=== PATIENT | male | born 1940 | race Caucasian/White ===

== ENCOUNTER → 2023-11-25 07:34 | Outpatient (REF) | payer MEDICARE, SELFPAY | LOC: HWRAD 07:34 | PROVIDERS: ATTENDING PHYSICIAN Surgery Vascular Surgery; FAMILY PHYSICIAN Internal Medicine | DX: I71.40 Abdominal aortic aneurysm, without rupture, unspecified (principal) | CPT/HCPCS: 74176 ==

== ENCOUNTER → 2023-12-03 08:36 | Outpatient (REF) | payer MEDICARE, SELFPAY ==
[2023-12-03 09:29] LABS: % Basophils 0.9 % (0-2); % Eosinophils 3.2 % (0-6); % Immature Granulocytes 0.2 % (0-0.5); % Lymphocytes 26.1 % (20.5-51.1); % Monocytes 8.4 % (1.7-9.3); % Neutrophils 61.2 % (42.2-75.2); Absolute Basophils 0.1 10^3/uL (0-0.2); Absolute Eosinophils 0.2 10^3/uL (0-0.7); Absolute Lymphocytes 1.5 10^3/uL (1.2-3.4); Absolute Monocytes 0.5 10^3/uL (0.1-0.6); Absolute Neutrophils 3.4 10^3/uL (1.4-6.5); Hematocrit 37.6 % (39.0-52.0); Hemoglobin 12.4 g/dL (13.0-18.0); Mean Corpuscular Hgb 31.1 pg (27.0-31.0); Mean Corpuscular Volume 94.2 fL (80.0-94.0); Nucleated Red Blood Cells % 0 % (-); Platelet Count 141 10^3/uL (130-400); Red Blood Cell Count 3.99 10^6/uL (4.70-6.10); White Blood Cell Count 5.6 10^3/uL (4.8-10.8)
[2023-12-03 12:52] LABS: TSH 0.47 uIU/ml (0.47-4.68)
[2023-12-03 13:05] LABS: ALT (SGPT) 11 U/L (0-50); AST (SGOT) 17 U/L (17-59); Albumin 3.9 g/dl (3.5-5.0); Alkaline Phosphatase 111 U/L (38-126); Calcium 8.8 mg/dl (8.4-10.2); Carbon Dioxide 27 mmol/L (22-30); Chloride 106 mmol/L (98-107); Glucose 97 mg/dl (70-99); Potassium 4.3 mmol/L (3.5-5.1); Sodium 137 mmol/L (135-145); Total Protein 7.1 g/dl (6.3-8.2)
[2023-12-03 13:11] LABS: Vitamin B12 295 pg/ml (239-931)
[2023-12-03 13:24] LABS: Blood Urea Nitrogen 22 mg/dl (9-20); Total Bilirubin 0.5 mg/dl (0.2-1.3); eGFR 54.85
== END ==
LOC: REG 08:36
PROVIDERS: ATTENDING PHYSICIAN Internal Medicine
DX: I10 Essential (primary) hypertension (principal); E78.2 Mixed hyperlipidemia; I71.40 Abdominal aortic aneurysm, without rupture, unspecified; K21.9 Gastro-esophageal reflux disease without esophagitis; G60.9 Hereditary and idiopathic neuropathy, unspecified; Z85.46 Personal history of malignant neoplasm of prostate; Z00.00 Encounter for general adult medical examination without abnormal findings
CPT/HCPCS: 36415; 80053; 82607; 84443; 85025

== ENCOUNTER → 2023-12-04 08:53 | Outpatient (REF) | payer MEDICARE, SELFPAY ==
[2023-12-04 11:47] LABS: Folate 4.3 ng/ml (2.76-20)
== END ==
LOC: REG 08:53
PROVIDERS: ATTENDING PHYSICIAN Internal Medicine
DX: I10 Essential (primary) hypertension (principal); E78.2 Mixed hyperlipidemia; I71.40 Abdominal aortic aneurysm, without rupture, unspecified; K21.9 Gastro-esophageal reflux disease without esophagitis; G60.9 Hereditary and idiopathic neuropathy, unspecified; Z85.46 Personal history of malignant neoplasm of prostate; Z00.00 Encounter for general adult medical examination without abnormal findings
CPT/HCPCS: 36415; 82746

== ENCOUNTER → 2023-12-16 11:18 | Outpatient (REF) | payer MEDICARE, SELFPAY ==
[2023-12-16 13:35] LABS: PSA, Total - Diagnostic 1.61 ng/ml (0.0-4.0)
== END ==
LOC: REG 11:18
PROVIDERS: ATTENDING PHYSICIAN Specialist; FAMILY PHYSICIAN Internal Medicine
DX: R97.21 Rising PSA following treatment for malignant neoplasm of prostate (principal)
CPT/HCPCS: 36415; 84153

== ENCOUNTER → 2024-01-02 08:39 | Outpatient (REF) | payer MEDICARE, SELFPAY | LOC: HWRAD 08:39 | PROVIDERS: ATTENDING PHYSICIAN Internal Medicine Critical Care Medicine; FAMILY PHYSICIAN Internal Medicine | DX: R91.8 Other nonspecific abnormal finding of lung field (principal); R91.1 Solitary pulmonary nodule; J84.9 Interstitial pulmonary disease, unspecified | CPT/HCPCS: 71250 ==

== ENCOUNTER → 2024-03-19 08:37 | Outpatient (REF) | payer MEDICARE, SELFPAY ==
[2024-03-19 11:14] LABS: Creatine Phosphokinase 57 U/L (55-170)
[2024-03-19 15:22] LABS: Rheumatoid Agglutinin Less Than 10 IU (<10 IU)
[2024-03-20 22:13] LABS: ANA, IgG Reflex to HEp-2 None Detected (None Detected)
[2024-03-21 00:04] LABS: ds-DNA Ab, IgG Reflex To Titer 10 IU (0-24)
[2024-03-21 01:46] LABS: CCP Antibody IgG/IgA 30 Units (0-19)
[2024-03-21 04:16] LABS: Aldolase 4.1 U/L (1.2-7.6); Angiotensin-1-converting Enzym 25 U/L (16-85)
[2024-03-21 13:09] LABS: Myeloperoxidase Antibody 0 AU/mL (0-19); Serine Protease-3, IgG 0 AU/mL (0-19)
[2024-03-21 13:53] LABS: Jo-1 Antibodies 4 AU/mL (0-40); SSA 52 (Ro)(ENA) Ab, IgG 3 AU/mL (0-40); SSA 60 (Ro)(ENA) Ab, IgG 0 AU/mL (0-40); SSB (La)(ENA) Ab, IgG 1 AU/mL (0-40); Scleroderma Antibody (Scl-70) 6 AU/mL (0-40)
== END ==
LOC: REG 08:37
PROVIDERS: ATTENDING PHYSICIAN Internal Medicine Critical Care Medicine; FAMILY PHYSICIAN Internal Medicine
DX: J84.9 Interstitial pulmonary disease, unspecified (principal)
CPT/HCPCS: 36415; 82085; 82164; 82550; 83516; 86038; 86200; 86225; 86235; 86331; 86430; 86606

== ENCOUNTER → 2024-03-20 11:02 | Outpatient (REF) | payer MEDICARE, SELFPAY | LOC: HWRAD 11:02 | PROVIDERS: ATTENDING PHYSICIAN Internal Medicine Critical Care Medicine; FAMILY PHYSICIAN Internal Medicine | DX: J84.9 Interstitial pulmonary disease, unspecified (principal) | CPT/HCPCS: 71250 ==

== ENCOUNTER 2024-08-09 11:35 | Emergency (ER) | payer MEDICARE, SELFPAY ==
[2024-08-09 11:48] VITALS: BP 128/82
--- NOTE | 2024-08-09 14:44 | ED.GENMED ---
History of Present Illness
General
Chief Complaint: Dizziness
Source: patient
Exam Limitations: none
Time Seen by Provider: 08/09/24 14:43
Nursing documentation reviewed up to this point in time: agreed with
History of Present Illness
History of Present Illness:
84-year-old male with history of HTN, HLD, AAA with repair 03/2023, prostate cancer with prostatectomy 2005 presents for dizziness. Was dizzy yesterday getting out of bed in a.m. , subsided after about 5 minutes. No dizziness rest of day. This a.m.
upon arising felt dizzy, had to hold on to things to walk and this time it lasted about 2 hours. Has had no dizziness since. Denies recent head injury, denies headache, change in vision, n/v/d/c.
Past History
Past History
ED Past Medical History: HTN and Hypercholesterolemia
ED Past Surgical History: Cardiac (AAA repair 03/2023) and Urological (Prostatectomy 2005)
Social History
Tobacco: Former smoker
Alcohol: None
Personal:
Employment: Retired
Review of Systems
Review of Systems
Allergies reviewed?: Yes
All Other Systems: ROS reviewed and negative except as documented in HPI and ROS
Constitutional: Denies fever or fatigue
Respiratory: Denies trouble breathing
Cardiac: Denies chest pain
ABD/GI: Denies abdominal pain, nausea, vomiting or diarrhea
: Denies dysuria or difficulty voiding
Musculoskeletal: Reports no symptoms
Skin: Reports no symptoms
Neurological: Reports dizzy; Denies headache, weakness or numbness
Phy Exam
Physical Exam
Physical Exam:
GENERAL: No acute distress. A&Ox3.
CONSTITUTIONAL: Afebrile.
EYES: clear, conjunctivae normal
ENMT: moist mucus membranes, Pharynx nl
RESPIRATORY: Regular respirations, nonlabored, lungs clear.
CARDIOVASCULAR: Regular rate and rhythm, no murmurs, no rubs.
GI: Soft, nontender, normal BS
MUSCULOSKELETAL: Moves with ease. Well perfused.
SKIN: Warm, dry, pink
PSYCH: Normal mood and affect. Well kept, interactive and appropriate
NEUROLOGIC: Awake, alert and oriented. Speech clear. CN 2-12 intact. No focal neurological deficits. Cerebellum intact (finger to nose, ambulates with steady gait and no c/o dizziness)
Course
Orders/Labs/Results
Orders:
Orders
08/09/24 11:52
Electrocardiogram (*1) Urgent
Reason for Study: Vertigo / Dizzy
CT Head W/o Iv Contrast Urgent
Comment:
Reason For Exam: dizziness
EKG- Treatment ONCE
08/09/24 14:56
Physical Therapy Consult [Pt Eval And Treat] Urgent
Treatment: Vestibular evaluation
Activity Level: Ambulate
08/09/24 16:37
Complete Blood Count/With Diff Urgent
Comprehensive Metabolic Panel Urgent
Abnormal Lab Results
08/09/24
16:37
RBC 4.11 L 10^6/uL
(4.70-6.10)
Hgb 12.5 L g/dL
(13.0-18.0)
Hct 37.3 L %
(39.0-52.0)
Sodium 134 L mmol/L
(135-145)
BUN 24 H mg/dl
(9-20)
Glucose 107 H mg/dl
(70-99)
Alkaline Phosphatase 127 H U/L
(38-126)
08/09/24 16:37
08/09/24 16:37
Vital Signs
Initial and Last Documented VS:
Initial Vital Signs
Temp Pulse Resp BP Pulse Ox
98.3 F 64 18 128/82 96
08/09/24 11:48 08/09/24 11:48 08/09/24 11:48 08/09/24 11:48 08/09/24 11:48
Last Documented Vital Signs
Temp Pulse Resp BP Pulse Ox
98.3 F 64 18 128/91 98
08/09/24 11:48 08/09/24 11:48 08/09/24 11:48 08/09/24 16:30 08/09/24 16:31
MDM/Problems Addressed
Differential Diagnosis Includes:
BPPV, labyrinthitis, TIA
MDM/Problems Addressed:
84-year-old male with history of HTN, HLD, AAA with repair 03/2023, prostate cancer with prostatectomy 2005 presents for dizziness. Was dizzy yesterday getting out of bed in a.m. , subsided after about 5 minutes. No dizziness rest of day. This a.m.
upon arising felt dizzy, had to hold on to things to walk and this time it lasted about 2 hours. Has had no dizziness since. Denies recent head injury, denies headache, change in vision, n/v/d/c.
EKG: NSR
Head CT neg
P/T in to evaluate: States definitely BPPV, nystagmus dizziness provoked bilaterally. pt feeling better after Hallpike and maneuvers
Rx for Meclizine sent to his pharmacy
CBC normal
CMP unremarkable
Pt stable for discharge
Rx for Meclizine sent to his pharmacy
Rx for Out pt Vestibular therapy given
Vestibular rehab pamphlet provided
*EKG
Interpreted by ED Provider?: Yes
EKG Intrepretation Date: 08/09/24
Interpretation: normal
Heart Rate: 69
Rate: normal
Rhythm: sinus
[place]: normal axis
Interval: normal interval
QRS Pattern: normal QRS
Ischemia: no ischemia
*Critical Care Note
Total Time (30-74mins, 75-104mins- exclusive of procedures): Not Applicable
ED Attending Note
-
Portions of this chart may have been created with voice recognition software.� Occasional wrong word or��sound alike� substitutions may have occurred due to the inherent limitations of voice recognition software.
Discharge Plan
Departure
Patient Disposition: Home (Routine Discharge)
Date of Disposition: 08/09/24
Time of Disposition: 17:07
Patient with high blood pressure during this ER visit?: No
Condition: Good
Discharge Problem:
Benign paroxysmal positional vertigo
Instructions: Vertigo (a type of dizziness), Exercises (maneuvers) for benign paroxysmal positional vertigo
Prescriptions:
New
meclizine 25 mg tablet
25 mg PO TID PRN (Reason: dizziness) Qty: 15 0RF
No Action
atorvastatin 20 mg Tablet
20 mg PO DAILY
metoprolol succinate [Toprol XL] 50 mg Tablet Extended Release 24 Hr
50 mg PO DAILY
acetaminophen 500 mg Capsule
500 mg PO Q6H PRN (Reason: pain)
omeprazole 20 mg Tablet,Delayed Release (Dr/Ec)
20 mg PO DAILY
Rx Instructions:
30 minutes prior to morning meal
aspirin 81 mg Tablet,Delayed Release (Dr/Ec)
81 mg PO DAILY Qty: 90 0RF
Referrals:
Louie Ayoub MD [Family Provider] - As needed
Activity Restrictions/Additional Instructions:
As we discussed, your exam is positive for benign positional vertigo.
Make an appointment with the outpatient vestibular clinic
I sent a prescription to your pharmacy for meclizine to take 25 mg up to 3 times a day as needed for dizziness
Return here immediately for dizziness that worsens despite the meclizine or your exercises that the physical therapist gave you
Interventions
Interventions:
*Risk Screen - Suicide Last Done: 08/09/24 11:48
*General Assessment Last Done: 08/09/24 11:48
*Neglect/Abuse Screening Last Done: 08/09/24 11:48
*ED COVID-19 Vaccine History Last Done: 08/09/24 11:48
ED- Neurological Assessment Last Done: 08/09/24 16:31
ED Swallowing Screen Last Done: 08/09/24 16:31
Discharge Date and Time
Print Language: RUSSIAN
[2024-08-09 16:30] VITALS: BP 128/91
[2024-08-09 16:31] VITALS: BMI 23.3
[2024-08-09 16:45] VITALS: BP 173/84
[2024-08-09 16:47] LABS: % Basophils 0.5 % (0-2); % Eosinophils 1.7 % (0-6); % Immature Granulocytes 0.2 % (0-0.5); % Monocytes 8.9 % (1.7-9.3); % Neutrophils 63.7 % (42.2-75.2); Absolute Eosinophils 0.1 10^3/uL (0-0.7); Absolute Lymphocytes 1.4 10^3/uL (1.2-3.4); Absolute Monocytes 0.5 10^3/uL (0.1-0.6); Absolute Neutrophils 3.7 10^3/uL (1.4-6.5); Hematocrit 37.3 % (39.0-52.0); Hemoglobin 12.5 g/dL (13.0-18.0); Mean Corp Hgb Conc. 33.5 g/dL (33.0-37.0); Mean Corpuscular Hgb 30.4 pg (27.0-31.0); Mean Corpuscular Volume 90.8 fL (80.0-94.0); Mean Platelet Volume 10.2 fL (7.4-10.4); Nucleated Red Blood Cells % 0 % (-); Platelet Count 131 10^3/uL (130-400); Red Blood Cell Count 4.11 10^6/uL (4.70-6.10); Red Cell Dist. Width 13.2 % (11.5-14.5); White Blood Cell Count 5.7 10^3/uL (4.8-10.8)
[2024-08-09 17:00] VITALS: BP 156/81
[2024-08-09 17:02] LABS: ALT (SGPT) 13 U/L (0-50); AST (SGOT) 18 U/L (17-59); Albumin 3.9 g/dl (3.5-5.0); Alkaline Phosphatase 127 U/L (38-126); Blood Urea Nitrogen 24 mg/dl (9-20); Calcium 8.8 mg/dl (8.4-10.2); Carbon Dioxide 24 mmol/L (22-30); Chloride 102 mmol/L (98-107); Estimated Creatinine Clearance 51 ml/min; Glucose 107 mg/dl (70-99); Potassium 4.7 mmol/L (3.5-5.1); Sodium 134 mmol/L (135-145); Total Bilirubin 0.6 mg/dl (0.2-1.3); Total Protein 7.2 g/dl (6.3-8.2); eGFR > 60.00
== END 2024-08-09 17:24 | disposition home or self-care (01) ==
LOC: EMR 11:35
PROVIDERS: Emergency Medicine; EMERGENCY PHYSICIAN Emergency Medicine; FAMILY PHYSICIAN Internal Medicine
DX: H81.10 Benign paroxysmal vertigo, unspecified ear (principal); I10 Essential (primary) hypertension; E78.00 Pure hypercholesterolemia, unspecified; Z85.46 Personal history of malignant neoplasm of prostate; Z86.79 Personal history of other diseases of the circulatory system; Z87.891 Personal history of nicotine dependence; Z90.79 Acquired absence of other genital organ(s)
CPT/HCPCS: 99284; 70450; 80053; 85025; 93005

== ENCOUNTER 2024-08-20 08:17 | Outpatient (RCR) | payer MEDICARE, SELFPAY | END 2024-08-20 23:59 | disposition home or self-care (01) | LOC: RPT 08:17 | PROVIDERS: ATTENDING PHYSICIAN Registered Nurse; FAMILY PHYSICIAN Internal Medicine | DX: R42 Dizziness and giddiness (principal); Z73.6 Limitation of activities due to disability | CPT/HCPCS: 97162; 97530 ==

== ENCOUNTER → 2024-09-22 08:06 | Outpatient (REF) | payer MEDICARE, SELFPAY | LOC: HWRAD 08:06 | PROVIDERS: ATTENDING PHYSICIAN Internal Medicine Critical Care Medicine; FAMILY PHYSICIAN Internal Medicine; REFERRING PHYSICIAN Student in an Organized Health Care Education/Training Program | DX: R91.8 Other nonspecific abnormal finding of lung field (principal); J84.9 Interstitial pulmonary disease, unspecified | CPT/HCPCS: 71250 ==

== ENCOUNTER → 2025-01-01 14:00 | Outpatient (REF) | payer MEDICARE, SELFPAY | LOC: HWRAD 14:00 | PROVIDERS: ATTENDING PHYSICIAN Surgery Vascular Surgery; FAMILY PHYSICIAN Internal Medicine | DX: I71.40 Abdominal aortic aneurysm, without rupture, unspecified (principal) | CPT/HCPCS: 74176 ==

== ENCOUNTER 2025-01-21 09:24 | Emergency (ER) | payer MEDICARE, SELFPAY ==
[2025-01-21 09:27] VITALS: BP 119/88
[2025-01-21 10:10] VITALS: BP 128/84
--- NOTE | 2025-01-21 10:22 | ED.GENMED ---
History of Present Illness
General
Chief Complaint: Dizziness
Source: patient
Time Seen by Provider: 01/21/25 10:03
History of Present Illness
History of Present Illness:
84-year-old male presents to the emergency room complaining of dizziness. Patient states he was getting out of bed to get dressed when he had the sense of spinning and movement. Symptoms have settled down. Currently he feels okay. He had a
similar episode 6 months ago. He denies any headache, chest pain, shortness of breath.
Past History
Past History
ED Past Medical History: HTN and Hypercholesterolemia
ED Past Surgical History: Cardiac (AAA repair 03/2023) and Urological (Prostatectomy 2005)
Social History
Tobacco: Former smoker
Alcohol: None
Personal:
Employment: Retired
Phy Exam
Physical Exam
Physical Exam:
General: Awake, Alert, Oriented X3. No acute distress. Appears stated age
Vitals: unremarkable
Head: Atraumatic
Eyes: Pupils equal, EOMI
Throat: Airway intact, no exudates
Neck: Trachea midline
Lungs: Clear and equal b/l
Heart: Regular rate, no murmurs
Abd: Soft, Nontender, No pulsatile mass
Neuro: Cranial nerves intact, muscle strength equal bilaterally, cerebellar exam normal
Skin: Warm, dry, no rash
Extremities: pulses equal b/l, no edema
Course
Orders/Labs/Results
Orders:
Orders
01/21/25 10:17
Electrocardiogram (*1) Urgent
Reason for Study: Vertigo / Dizzy
EKG- Treatment ONCE
Meclizine [Antivert] 25 mg PO NOW STA
01/21/25 10:40
Basic Metabolic Panel Urgent
01/21/25 11:31
Complete Blood Count/No Diff Routine
Abnormal Lab Results
01/21/25 01/21/25
10:40 11:31
RBC 3.73 L 10^6/uL
(4.70-6.10)
Hgb 11.5 L g/dL
(13.0-18.0)
Hct 34.0 L %
(39.0-52.0)
Plt Count 108 L 10^3/uL
(130-400)
Chloride 110 H mmol/L
(98-107)
Carbon Dioxide 21 L mmol/L
(22-30)
BUN 21 H mg/dl
(9-20)
Glucose 173 H mg/dl
(70-99)
01/21/25 11:31
01/21/25 10:40
Vital Signs
Initial and Last Documented VS:
Initial Vital Signs
Temp Pulse Resp BP Pulse Ox
98 F 71 16 119/88 97
01/21/25 09:27 01/21/25 09:27 01/21/25 09:27 01/21/25 09:27 01/21/25 09:27
Last Documented Vital Signs
Temp Pulse Resp BP Pulse Ox
98 F 58 13 150/88 97
01/21/25 09:27 01/21/25 13:00 01/21/25 12:30 01/21/25 13:00 01/21/25 09:27
MDM/Problems Addressed
Differential Diagnosis Includes:
bppv, dehydration, anemia
MDM/Problems Addressed:
Patient presents after having episode of dizziness at home. The symptoms are gone at the time of my evaluation. He had a history of a similar episode 6 months ago. Overall the presentation seems most consistent with benign positional vertigo.
Patient totally asymptomatic at the time of discharge. Recommend outpatient follow with ENT
*Pulse Oximetry
Patient hypoxic: no
*Critical Care Note
Total Time (30-74mins, 75-104mins- exclusive of procedures): Not Applicable
ED Attending Note
-
Portions of this chart may have been created with voice recognition software.� Occasional wrong word or��sound alike� substitutions may have occurred due to the inherent limitations of voice recognition software.
Discharge Plan
Departure
Patient Disposition: Home (Routine Discharge)
Date of Disposition: 01/21/25
Time of Disposition: 12:49
Patient with high blood pressure during this ER visit?: No
Condition: Good
Discharge Problem:
BPPV (benign paroxysmal positional vertigo)
Instructions: Vertigo (a type of dizziness)
Prescriptions:
No Action
atorvastatin 20 mg Tablet
20 mg PO DAILY
metoprolol succinate [Toprol XL] 50 mg Tablet Extended Release 24 Hr
50 mg PO DAILY
acetaminophen 500 mg Capsule
500 mg PO Q6H PRN (Reason: pain)
omeprazole 20 mg Tablet,Delayed Release (Dr/Ec)
20 mg PO DAILY
Rx Instructions:
30 minutes prior to morning meal
aspirin 81 mg Tablet,Delayed Release (Dr/Ec)
81 mg PO DAILY Qty: 90 0RF
meclizine 25 mg tablet
25 mg PO TID PRN (Reason: dizziness) Qty: 15 0RF
Referrals:
Louie Ayoub MD [Family Provider, Internal Medicine]
Gayathri Garcia MD [Active, Otology]
Activity Restrictions/Additional Instructions:
You should get a box of meclizine 25mg which you can get from the pharmacy [id number].
Interventions
Interventions:
*Risk Screen - Suicide Last Done: 01/21/25 09:29
*General Assessment Last Done: 01/21/25 10:20
*Neglect/Abuse Screening Last Done: 01/21/25 09:29
*ED- Fall Risk Assessment Last Done: 01/21/25 10:20
*ED COVID-19 Vaccine History Last Done: 01/21/25 10:20
*Nursing Disposition Last Done: 01/21/25 13:35
ED- Neurological Assessment Last Done: 01/21/25 10:20
ED Swallowing Screen Last Done: 01/21/25 10:20
Discharge Date and Time
Discharge Date/Time: 01/21/25 13:35
Print Language: CONGOLESE
[2025-01-21] MEDS: ANTIVERT 25 MG PO (10:34)
[2025-01-21 11:00] VITALS: BP 116/85
[2025-01-21 11:10] LABS: Blood Urea Nitrogen 21 mg/dl (9-20); Calcium 8.7 mg/dl (8.4-10.2); Carbon Dioxide 21 mmol/L (22-30); Chloride 110 mmol/L (98-107); Glucose 173 mg/dl (70-99); Potassium 4.4 mmol/L (3.5-5.1); Sodium 138 mmol/L (135-145); eGFR > 60.00
[2025-01-21 11:35] LABS: Hemoglobin 11.5 g/dL (13.0-18.0); Mean Corp Hgb Conc. 33.8 g/dL (33.0-37.0); Mean Corpuscular Hgb 30.8 pg (27.0-31.0); Mean Corpuscular Volume 91.2 fL (80.0-94.0); Mean Platelet Volume 9.8 fL (7.4-10.4); Platelet Count 108 10^3/uL (130-400); Red Blood Cell Count 3.73 10^6/uL (4.70-6.10); Red Cell Dist. Width 13.7 % (11.5-14.5); White Blood Cell Count 5.7 10^3/uL (4.8-10.8)
[2025-01-21 12:00] VITALS: BP 130/76
[2025-01-21 13:00] VITALS: BP 150/88
== END 2025-01-21 13:35 | disposition home or self-care (01) ==
LOC: EMR 09:24
PROVIDERS: EMERGENCY PHYSICIAN Emergency Medicine; FAMILY PHYSICIAN Internal Medicine
DX: H81.10 Benign paroxysmal vertigo, unspecified ear (principal); I10 Essential (primary) hypertension; E78.00 Pure hypercholesterolemia, unspecified; Z87.891 Personal history of nicotine dependence; Z90.79 Acquired absence of other genital organ(s)
CPT/HCPCS: 99284; 80048; 85027; 93005

== ENCOUNTER → 2025-03-03 07:36 | Outpatient (REF) | payer MEDICARE, SELFPAY ==
[2025-03-03 08:33] LABS: Hematocrit 36.9 % (39.0-52.0); Hemoglobin 12.3 g/dL (13.0-18.0); Mean Corp Hgb Conc. 33.3 g/dL (33.0-37.0); Mean Corpuscular Volume 91.1 fL (80.0-94.0); Nucleated Red Blood Cells % 0 % (-); Platelet Count 128 10^3/uL (130-400); Red Cell Dist. Width 13.2 % (11.5-14.5)
[2025-03-03 09:09] LABS: Urine Character Clear (Clear)
[2025-03-03 09:25] LABS: Urine Squamous Cell 0-2 /LPF (Few)
[2025-03-03 09:36] LABS: ALT (SGPT) < 10 U/L (0-50); AST (SGOT) 14 U/L (17-59); Albumin 3.8 g/dl (3.5-5.0); Alkaline Phosphatase 129 U/L (38-126); Blood Urea Nitrogen 20 mg/dl (9-20); Calcium 8.6 mg/dl (8.4-10.2); Carbon Dioxide 25 mmol/L (22-30); Chloride 106 mmol/L (98-107); Glucose 104 mg/dl (70-99); HDL Cholesterol 44 mg/dl; LDL Cholesterol, Calculated 86 mg/dl; Potassium 4.5 mmol/L (3.5-5.1); Sodium 138 mmol/L (135-145); Total Protein 7.1 g/dl (6.3-8.2); Very Low Density Lipoprotein 16 mg/dl (0-30); eGFR 54.51
[2025-03-03 10:06] LABS: PSA, Total - Diagnostic 2.33 ng/ml (0.0-4.0); TSH 0.35 uIU/ml (0.47-4.68)
[2025-03-03 12:44] LABS: Folate 2.5 ng/ml (2.76-20); Vitamin B12 244 pg/ml (239-931)
== END ==
LOC: REG 07:36
PROVIDERS: ATTENDING PHYSICIAN Internal Medicine
DX: I10 Essential (primary) hypertension (principal); E78.2 Mixed hyperlipidemia; I71.40 Abdominal aortic aneurysm, without rupture, unspecified; G62.89 Other specified polyneuropathies; C61 Malignant neoplasm of prostate; W19.XXXS Unspecified fall, sequela; D53.9 Nutritional anemia, unspecified
CPT/HCPCS: 36415; 80053; 80061; 81003; 81015; 82607; 82746; 84153; 84443; 85025

== ENCOUNTER → 2025-05-10 08:28 | Outpatient (REF) | payer MEDICARE, SELFPAY | LOC: HWRAD 08:28 | PROVIDERS: ATTENDING PHYSICIAN Specialist; FAMILY PHYSICIAN Internal Medicine | DX: G30.1 Alzheimer's disease with late onset (principal) | CPT/HCPCS: 70450 ==

== ENCOUNTER 2025-06-25 06:37 | Outpatient (RCR) | payer SELFPAY | END 2025-06-28 09:26 | disposition home or self-care (01) | LOC: ROT 06:37 | PROVIDERS: ATTENDING PHYSICIAN Specialist; FAMILY PHYSICIAN Internal Medicine | DX: Z02.4 Encounter for examination for driving license (principal) ==